=== PATIENT | female | born 1930 | race Caucasian/White ===

== ENCOUNTER 2016-08-08 13:25 | Inpatient (IN) | payer OTHER ==
[~2016-08-08] VITALS: Ht 165.1 cm; Wt 65.5 kg
[~2016-08-08 13:25] MED LIST: AGGRENOX1 CAPSULE PO; ASMANEX TW200 MICRO1 IH; ASPIR 8181 M1 PO; BENZONATATE100 MG PO; CARDIZEM CD240 MG PO; CARDIZEM LA120 MG PO; CARDIZEM120 MG PO; CO Q-10100 MG PO; DONEPEZIL HCL10 MG PO; DOXYCYCLINE HY100 MG PO; ELIQUIS2.5 MG PO; FLOVENT 11120 INHALA IH; FUROSEMIDE20 MG PO; FUROSEMIDE40 MG PO; LEVOFLOXACIN500 MG PO; MIRAPEX0.25 MG PO; NEXIUM 24HR20 MG PO; NEXIUM40 MG PO; NORTRIPTYLINE H25 MG PO; PRAMIPEXOLE DI0.5 MG PO; PRAMIPEXOLE DIHY1 MG PO; PREDNISONE10 MG PO; PREDNISONE5 MG PO
[2016-08-08 14:11] LABS: HEMATOCRIT 36.6 % (36.0-46.0); MCHC 30.9 G/DL (30.0-36.0); MEAN PLAT.VOLUME 9.3 uM^3 (9.5-12.4); PLATELET COUNT 278 K/uL (156-360); RBC DIS.WIDTH-CV 18.3 % (11.8-14.6); RED BLOOD COUNT 4.52 M/uL (3.80-5.20); WHITE BLOOD COUNT 10.9 K/uL (4.1-10.2)
[2016-08-08 14:19] LABS: CHLORIDE 106 mEq/L (99-109); POTASSIUM 3.4 mEq/L (3.7-5.4); SODIUM 142 mEq/L (136-147)
[2016-08-08 14:21] LABS: GLUCOSE 126 mg/dL (70-99)
[2016-08-08 14:22] LABS: ANION GAP 10 MEQ/L (2-14)
[2016-08-08 14:24] LABS: ALKALINE PHOSPHATASE 90 IU/L (3-129)
[2016-08-08 14:25] LABS: GFR ESTIMATE (CALCULATED) 41 mL/min/
[2016-08-08 14:26] LABS: UREA NITROGEN (BUN) 36 mg/dL (9-23)
[2016-08-08 14:30] LABS: EOSINOPHIL (%) 1.4 % (0-5); EOSINOPHIL COUNT 0.2 K/uL (0-0.3); IMMATURE GRANULOCYTE (%) 0.2 % (0.0-0.7); IMMATURE GRANULOCYTE COUNT 0.2 K/uL; MONOCYTE (%) 10.6 % (3-12); MONOCYTE COUNT 1.2 K/uL (0-0.8); NEUTROPHIL (%) 78.1 % (45-76); NEUTROPHIL COUNT 8.5 K/uL (1.8-6.4)
[2016-08-08 14:34] LABS: TROP-I INTERPRETATION NEGATIVE; TROPONIN-I < 0.01 ng/mL (0.0-0.30)
[2016-08-08 15:08] LABS: ADD MIUA? NO; BILIRUBIN NEGATIVE; BLOOD NEGATIVE; COLOR YELLOW ((YELLOW)); GLUCOSE (STRIP) NEGATIVE; KETONES NEGATIVE; LEUKOCYTES NEGATIVE; NITRITE NEGATIVE; PH, URINE 5.5 (5-8); PROTEIN (STRIP) TRACE; SPECIFIC GRAVITY 1.024 (1.000-1.030); UCUL ADDED? NO
[2016-08-08 21:00] VITALS: BP 147/92
[2016-08-09] VITALS (7 sets, daily range): BP systolic 131–177; BP diastolic 82–106
[2016-08-09 07:15] LABS: HEMATOCRIT 36.5 % (36.0-46.0); MCH 24.7 PG (29.0-34.0); MCHC 30.1 G/DL (30.0-36.0); MEAN PLAT.VOLUME 9.3 uM^3 (9.5-12.4); PLATELET COUNT 235 K/uL (156-360); RBC DIS.WIDTH-CV 18.4 % (11.8-14.6); RBC DIS.WIDTH-SD 54.4 % (39-53); RED BLOOD COUNT 4.45 M/uL (3.80-5.20); WHITE BLOOD COUNT 10.3 K/uL (4.1-10.2)
[2016-08-09 07:46] LABS: ANION GAP 10 MEQ/L (2-14); CHLORIDE 107 MEQ/L (99-109); GFR ESTIMATE (CALCULATED) 56 mL/min/; POTASSIUM 3.9 MEQ/L (3.7-5.4); SAMPLE HEMOLYSIS CHECK 0; SAMPLE ICTERIC CHECK 0; SAMPLE LIPEMIA CHECK 0; SODIUM 146 MEQ/L (136-147); UREA NITROGEN (BUN) 30 mg/dL (9-23)
[2016-08-09 07:50] LABS: GLUCOSE 87 mg/dL (70-99)
[2016-08-10 04:00] VITALS: BP 132/84
[2016-08-10 07:21] LABS: HEMATOCRIT 37.5 % (36.0-46.0); MCH 24.7 PG (29.0-34.0); MCHC 30.1 G/DL (30.0-36.0); MCV 82.1 FL (83-99); MEAN PLAT.VOLUME 9.7 uM^3 (9.5-12.4); PLATELET COUNT 237 K/uL (156-360); RBC DIS.WIDTH-CV 18.6 % (11.8-14.6); RBC DIS.WIDTH-SD 55.6 % (39-53); RED BLOOD COUNT 4.57 M/uL (3.80-5.20); WHITE BLOOD COUNT 8.4 K/uL (4.1-10.2)
[2016-08-10 07:37] VITALS: BP 165/94
[2016-08-10 07:44] LABS: EOSINOPHIL (%) 1.8 % (0-5); EOSINOPHIL COUNT 0.2 K/uL (0-0.3); IMMATURE GRANULOCYTE (%) 0.2 % (0.0-0.7); MONOCYTE (%) 10.7 % (3-12); MONOCYTE COUNT 0.9 K/uL (0-0.8); NEUTROPHIL (%) 74.6 % (45-76); NEUTROPHIL COUNT 6.3 K/uL (1.8-6.4)
[2016-08-10 07:48] LABS: ANION GAP 9 MEQ/L (2-14); CHLORIDE 107 MEQ/L (99-109); GFR ESTIMATE (CALCULATED) 56 mL/min/; GLUCOSE 95 mg/dL (70-99); POTASSIUM 3.9 MEQ/L (3.7-5.4); SAMPLE HEMOLYSIS CHECK 0; SAMPLE ICTERIC CHECK 0; SAMPLE LIPEMIA CHECK 0; SODIUM 145 MEQ/L (136-147); UREA NITROGEN (BUN) 25 mg/dL (9-23)
[2016-08-10 11:23] VITALS: BP 129/99
[2016-08-10 14:50] VITALS: BP 121/86
[2016-08-10 20:00] VITALS: BP 92/64
[2016-08-10 23:36] VITALS: BP 123/81
[2016-08-11 04:00] VITALS: BP 136/84
[2016-08-11 07:41] VITALS: BP 141/90
[2016-08-11 10:53] VITALS: BP 136/84
[2016-08-11 15:09] VITALS: BP 107/66
[2016-08-11 19:48] VITALS: BP 110/74
[2016-08-12 00:40] VITALS: BP 130/78
[2016-08-12 04:00] VITALS: BP 120/75
[2016-08-12 08:15] VITALS: BP 152/88
[2016-08-12 12:12] VITALS: BP 108/80
[2016-08-12] MEDS ORDERED: CARBIDOPA/LEVO1 EACH PO (13:36)
[2016-08-15 12:05] LABS: STRIATED (SKELETAL) MUSCLE AB+ NEGATIVE titer (NEGATIVE)
[2016-08-15 16:34] LABS: ACETYLCHOLINE RECP BIND ABY+ <0.30 nmol/L (<=0.30)
== END 2016-08-12 15:59 | DRG 72 ==
LOC: EME 13:25 → EDOF 16:54 → 5SOUTH 16:54
PROVIDERS: Hospitalist; Internal Medicine; Physician Assistant; Specialist
DX: G93.40 Encephalopathy, unspecified (principal); R26.81 Unsteadiness on feet; R41.0 Disorientation, unspecified; R53.1 Weakness; I48.2 Chronic atrial fibrillation; I10 Essential (primary) hypertension; G20 Parkinson's disease; K21.9 Gastro-esophageal reflux disease without esophagitis; D50.9 Iron deficiency anemia, unspecified; M50.30 Other cervical disc degeneration, unspecified cervical region; M47.894 Other spondylosis, thoracic region; F01.50 Vascular dementia, unspecified severity, without behavioral disturbance, psychotic disturbance, mood disturbance, and anxiety; M46.96 Unspecified inflammatory spondylopathy, lumbar region; Z91.81 History of falling; E78.5 Hyperlipidemia, unspecified; F32.9 Major depressive disorder, single episode, unspecified; M19.90 Unspecified osteoarthritis, unspecified site; M81.0 Age-related osteoporosis without current pathological fracture; Z09 Encounter for follow-up examination after completed treatment for conditions other than malignant neoplasm; Z86.73 Personal history of transient ischemic attack (TIA), and cerebral infarction without residual deficits; Z66 Do not resuscitate; Z79.01 Long term (current) use of anticoagulants; Z88.0 Allergy status to penicillin
CPT/HCPCS: 70450; 70551; 71010; 71020; 72040; 72070; 72100; 73522; 74230; 80048; 80053; 81003; 83520 90; 83880; 84238 90; 84484; 85025; 85027; 86255 90; 92610 GN; 92611 GN; 93005; 94640; 94640 76; 94799; 97530 GO; 99281; 99285; J2060; J3480

== ENCOUNTER 2017-04-06 13:35 | Inpatient (IN) | payer OTHER ==
[~2017-04-06] VITALS: Ht 167.6 cm; Wt 73.1 kg
[~2017-04-06 13:35] MED LIST changes: +CARBIDOPA/LEVO1 EACH PO
[2017-04-06 15:00] LABS: MCH 22.9 PG (29.0-34.0); MCHC 29.5 G/DL (30.0-36.0); MCV 77.6 FL (83-99); MEAN PLAT.VOLUME 8.6 uM^3 (9.5-12.4); PLATELET COUNT 286 K/uL (156-360); RBC DIS.WIDTH-CV 19.3 % (11.8-14.6); RBC DIS.WIDTH-SD 53.3 % (39-53); WHITE BLOOD COUNT 12.5 K/uL (4.1-10.2)
[2017-04-06 15:07] LABS: CHLORIDE 103 mEq/L (99-109); POTASSIUM 3.8 mEq/L (3.7-5.4); SODIUM 141 mEq/L (136-147)
[2017-04-06 15:09] LABS: GLUCOSE 97 mg/dL (70-99)
[2017-04-06 15:10] LABS: ANION GAP 11 MEQ/L (2-14)
[2017-04-06 15:13] LABS: GFR ESTIMATE (CALCULATED) 38 mL/min/
[2017-04-06 15:14] LABS: UREA NITROGEN (BUN) 26 mg/dL (9-23)
[2017-04-06] MEDS ORDERED: CARDIZEM30 MG PO (15:27)
[2017-04-06] MEDS ORDERED: PRAMIPEXOLE DI0.5 MG PO (15:29)
[2017-04-06] MEDS ORDERED: PRAMIPEXOLE DIHY1 MG PO ×2 (15:31)
[2017-04-06] MEDS ORDERED: LASIX20 MG PO (15:32)
[2017-04-06 15:36] LABS: TROP-I INTERPRETATION NEGATIVE; TROPONIN-I 0.02 ng/mL (0.0-0.30)
[2017-04-06 15:54] LABS: ADD MIUA? NO; BILIRUBIN NEGATIVE; BLOOD NEGATIVE; COLOR STRAW ((YELLOW)); GLUCOSE (STRIP) NEGATIVE; KETONES NEGATIVE; LEUKOCYTES NEGATIVE; NITRITE NEGATIVE; PROTEIN (STRIP) NEGATIVE; SPECIFIC GRAVITY 1.009 (1.000-1.030); UCUL ADDED? NO; UROBILINOGEN 0.2 MG/DL (0.2-1.0)
[2017-04-06] MEDS ORDERED: CENTRUM SILV1 TABLET PO (19:40)
[2017-04-06] MEDS ORDERED: CRANBERRY425 MG PO (19:41)
[2017-04-06] MEDS ORDERED: TYLENOL EXTRA500 MG PO (19:44)
[2017-04-06] MEDS ORDERED: SYSTANE GEL EYE10 ML BOTH EYES (19:47)
[2017-04-06] MEDS ORDERED: LEVAQUIN250 MG PO (19:51)
[2017-04-06 22:12] VITALS: BP 143/89
[2017-04-06 22:52] VITALS: BP 148/70; BP 150/70
[2017-04-06 22:57] LABS: TROP-I INTERPRETATION NEGATIVE; TROPONIN-I < 0.01 ng/mL (0.0-0.30)
[2017-04-06 23:11] VITALS: BP 119/84
[2017-04-07] VITALS (8 sets, daily range): BP systolic 117–152; BP diastolic 70–108
[2017-04-07 03:37] LABS: HEMATOCRIT 36.6 % (36.0-46.0); MCH 22.5 PG (29.0-34.0); MCHC 29.2 G/DL (30.0-36.0); MCV 76.9 FL (83-99); MEAN PLAT.VOLUME 8.8 uM^3 (9.5-12.4); PLATELET COUNT 293 K/uL (156-360); RBC DIS.WIDTH-CV 18.7 % (11.8-14.6); RBC DIS.WIDTH-SD 52.4 % (39-53); RED BLOOD COUNT 4.76 M/uL (3.80-5.20); WHITE BLOOD COUNT 10.6 K/uL (4.1-10.2)
[2017-04-07 03:51] LABS: CHLORIDE 108 mEq/L (99-109); POTASSIUM 3.6 mEq/L (3.7-5.4); SODIUM 142 mEq/L (136-147)
[2017-04-07 03:53] LABS: GLUCOSE 95 mg/dL (70-99)
[2017-04-07 03:54] LABS: ANION GAP 11 MEQ/L (2-14)
[2017-04-07 03:55] LABS: TOTAL BILIRUBIN 0.8 mg/dL (0.0-1.0)
[2017-04-07 03:56] LABS: ALKALINE PHOSPHATASE 78 IU/L (3-129)
[2017-04-07 03:57] LABS: GFR ESTIMATE (CALCULATED) 56 mL/min/
[2017-04-07 03:58] LABS: UREA NITROGEN (BUN) 18 mg/dL (9-23)
[2017-04-07 03:59] LABS: TROP-I INTERPRETATION NEGATIVE; TROPONIN-I 0.02 ng/mL (0.0-0.30)
[2017-04-07 04:57] LABS: IRON 23 MCG/DL (35-150)
[2017-04-07 08:04] LABS: FERRITIN 12 NG/ML (10-291)
[2017-04-08 03:22] VITALS: BP 151/81
[2017-04-08 08:54] LABS: HEMATOCRIT 39.9 % (36.0-46.0); MCH 22.4 PG (29.0-34.0); MCHC 29.1 G/DL (30.0-36.0); MCV 77.2 FL (83-99); MEAN PLAT.VOLUME 8.7 uM^3 (9.5-12.4); PLATELET COUNT 309 K/uL (156-360); RBC DIS.WIDTH-CV 19.1 % (11.8-14.6); RBC DIS.WIDTH-SD 52.5 % (39-53); RED BLOOD COUNT 5.17 M/uL (3.80-5.20)
[2017-04-08 09:21] LABS: ALKALINE PHOSPHATASE 81 IU/L (3-129); ANION GAP 9 MEQ/L (2-14); CHLORIDE 106 MEQ/L (99-109); GFR ESTIMATE (CALCULATED) 50 mL/min/; GLUCOSE 90 mg/dL (70-99); POTASSIUM 4.3 MEQ/L (3.7-5.4); SAMPLE HEMOLYSIS CHECK 0; SAMPLE ICTERIC CHECK 0; SAMPLE LIPEMIA CHECK 0; SODIUM 141 MEQ/L (136-147); TOTAL BILIRUBIN 0.8 MG/DL (0.0-1.0); UREA NITROGEN (BUN) 16 mg/dL (9-23)
[2017-04-08 20:15] VITALS: BP 116/77
[2017-04-09] VITALS: BP 131/66
[2017-04-09 03:48] VITALS: BP 134/68
[2017-04-09 07:00] VITALS: BP 161/83
== END 2017-04-09 15:37 | DRG 309 ==
LOC: EME 13:35 → 4EAST 20:35 → EDOF 20:35 → ENRESERV 20:39 → 4EAST 21:55 → ENPENDDIS 04-09 → 4EAST 04-09 15:37
PROVIDERS: Emergency Medicine; Internal Medicine; Physician Assistant
DX: I48.2 Chronic atrial fibrillation (principal); S52.615A Nondisplaced fracture of left ulna styloid process, initial encounter for closed fracture; W18.30XA Fall on same level, unspecified, initial encounter; F01.50 Vascular dementia, unspecified severity, without behavioral disturbance, psychotic disturbance, mood disturbance, and anxiety; G20 Parkinson's disease; I12.9 Hypertensive chronic kidney disease with stage 1 through stage 4 chronic kidney disease, or unspecified chronic kidney disease; N18.3 Chronic kidney disease, stage 3 (moderate); K21.9 Gastro-esophageal reflux disease without esophagitis; E78.5 Hyperlipidemia, unspecified; M19.90 Unspecified osteoarthritis, unspecified site; Z66 Do not resuscitate; Y92.099 Unspecified place in other non-institutional residence as the place of occurrence of the external cause; Z79.01 Long term (current) use of anticoagulants; Z86.73 Personal history of transient ischemic attack (TIA), and cerebral infarction without residual deficits; Z88.0 Allergy status to penicillin; Z82.0 Family history of epilepsy and other diseases of the nervous system; Z82.49 Family history of ischemic heart disease and other diseases of the circulatory system
CPT/HCPCS: 70450; 71010; 71020; 73110; 80048; 80053; 81003; 82140; 82728; 83540; 84466; 84484; 85027; 87086; 92610 GN; 93005; 94010; 99281; 99284; J7030

== ENCOUNTER 2017-09-01 08:22 | Emergency (ER) | payer OTHER ==
[~2017-09-01] VITALS: Ht 170.2 cm; Wt 67.0 kg
[~2017-09-01 08:22] MED LIST changes: +CARDIZEM30 MG PO; +CENTRUM SILV1 TABLET PO; +CRANBERRY425 MG PO; +LASIX20 MG PO; +LEVAQUIN250 MG PO; +SYSTANE GEL EYE10 ML BOTH EYES; +TYLENOL EXTRA500 MG PO
[2017-09-01 10:41] LABS: BASOPHIL (%) 0.2 % (0-1); EOSINOPHIL (%) 1.1 % (0-5); EOSINOPHIL COUNT 0.1 K/uL (0-0.3); HEMATOCRIT 48.6 % (36.0-46.0); HEMOGLOBIN 15.8 G/DL (11.9-15.5); IMMATURE GRANULOCYTE (%) 0.4 % (0.0-0.7); LYMPHOCYTE (%) 20.7 % (15-42); LYMPHOCYTE COUNT 1.1 K/uL (1.0-2.8); MCH 30.6 PG (29.0-34.0); MCHC 32.5 G/DL (30.0-36.0); MONOCYTE (%) 16.5 % (3-12); MONOCYTE COUNT 0.9 K/uL (0-0.8); NEUTROPHIL (%) 61.1 % (45-76); NEUTROPHIL COUNT 3.4 K/uL (1.8-6.4); PLATELET COUNT 162 K/uL (156-360); RBC DIS.WIDTH-CV 15.4 % (11.8-14.6); RBC DIS.WIDTH-SD 52.8 % (39-53); RED BLOOD COUNT 5.17 M/uL (3.80-5.20); WHITE BLOOD COUNT 5.5 K/uL (4.1-10.2)
[2017-09-01 10:49] LABS: CHLORIDE 108 mEq/L (99-109); POTASSIUM 3.7 mEq/L (3.7-5.4); SODIUM 144 mEq/L (136-147)
[2017-09-01 10:51] LABS: GLUCOSE 85 mg/dL (70-99)
[2017-09-01 10:55] LABS: CREATININE 1.2 mg/dL (0.6-1.3); GFR ESTIMATE (CALCULATED) 45 mL/min/
[2017-09-01 10:56] LABS: UREA NITROGEN (BUN) 26 mg/dL (9-23)
[2017-09-01 12:06] LABS: APPEARANCE CLEAR ((CLEAR)); BILIRUBIN NEGATIVE; BLOOD NEGATIVE; COLOR YELLOW ((YELLOW)); GLUCOSE (STRIP) NEGATIVE; KETONES 5; LEUKOCYTES MODERATE; NITRITE POSITIVE; PROTEIN (STRIP) 30; UROBILINOGEN 0.2 MG/DL (0.2-1.0)
[2017-09-01 12:19] LABS: BACTERIA 2+ /HPF; EPITHELIAL CELLS RARE /HPF; MUCUS TRACE /LPF; RED BLOOD CELLS 0-5 /HPF (0-5); UCUL ADDED? YES; WHITE BLOOD CELLS 15-20 /HPF (0-5)
[2017-09-01] MEDS ORDERED: CIPRO500 MG PO (12:55)
[2017-09-01] MEDS ORDERED: CIPRO500 MG/5 M PO (13:07)
[2017-09-01 15:07] VITALS: BP 136/87
== END 2017-09-01 15:08 ==
LOC: EME 08:22
PROVIDERS: Emergency Medicine
DX: S09.90XA Unspecified injury of head, initial encounter (principal); N39.0 Urinary tract infection, site not specified; I48.91 Unspecified atrial fibrillation; W18.30XA Fall on same level, unspecified, initial encounter; R29.6 Repeated falls; G20 Parkinson's disease; I11.0 Hypertensive heart disease with heart failure; I50.9 Heart failure, unspecified; E78.5 Hyperlipidemia, unspecified; Z86.73 Personal history of transient ischemic attack (TIA), and cerebral infarction without residual deficits; R73.03 Prediabetes; M81.0 Age-related osteoporosis without current pathological fracture; F32.9 Major depressive disorder, single episode, unspecified; F41.9 Anxiety disorder, unspecified; K21.9 Gastro-esophageal reflux disease without esophagitis; Z88.0 Allergy status to penicillin
CPT/HCPCS: 70450; 71046; 80048; 81003; 85025; 87077; 87086; 87186; 93005